=== PATIENT | female | born 1995 | race American Indian/Alaskan Native ===

== ENCOUNTER 2022-03-18 20:13 | Inpatient (IN) | payer OTHER ==
[2022-03-18] MEDS ORDERED: LACTATED RINGERS 0 ML ONE (21:16)
[2022-03-19] MEDS ORDERED: miSOPROStol 200 MCG TAB PR PRN (02:14)
[2022-03-19] MEDS ORDERED: ePHEDrine SULFATE 50 MG/1 ML INJ IV PRN (02:14)
[2022-03-19] MEDS ORDERED: LOPERAMIDE 2 MG CAP PO PRN (02:14)
[2022-03-19] MEDS ORDERED: LIDOCAINE (2%) 20 MG/1 ML VIAL 20 ML MDV INFILTRATI ONE (02:14)
[2022-03-19] MEDS ORDERED: METHYLERGONOVINE MALEATE 0.2 MG/ML VIAL IM PRN (02:14)
[2022-03-19] MEDS ORDERED: CARBOPROST TROMETHAMINE 250 MCG/1 ML INJ IM PRN (02:14)
[2022-03-19] MEDS ORDERED: MINERAL OIL 30 ML ORAL LIQD PO PRN (02:14)
[2022-03-19] MEDS ORDERED: OXYTOCIN 10 UNIT/1 ML INJ IM PRN (02:14)
[2022-03-19] MEDS ORDERED: TERBUTALINE 1 MG/1 ML INJ SUB-Q PRN (02:14)
[2022-03-19] MEDS ORDERED: LACTATED RINGERS 1,000 ML IV SCH (02:15)
[2022-03-19] MEDS ORDERED: ACETAMINOPHEN 325 MG TAB PO PRN (02:47)
[2022-03-19] MEDS ORDERED: BUTORPHANOL 2 MG/1 ML INJ IV PRN ×2 (02:47)
[2022-03-19] MEDS ORDERED: OXYTOCIN DRIP 30 UNITS/500 ML BAG IV SCH (03:00)
[2022-03-19 03:28] LABS: Hematocrit 35.9 % (30.3-42.9); Hemoglobin 11.6 gm/dl (10.1-14.3); Mean Corpuscular HGB Conc 32 % (30-34); Mean Corpuscular Volume 79 fl (79-97); Platelet Count 230 K/mm3 (140-440); Red Blood Count 4.52 M/mm3 (3.65-5.03); Red Cell Distribution Width 16.7 % (13.2-15.2)
[2022-03-19] MEDS ORDERED: DINOPROSTONE 10 MG VAG SUPP VG ONE (03:45)
--- NOTE | 2022-03-19 08:27 | History and Physical Report ---
History of Present Illness Date of examination: 03/19/22 Date of admission: 03/18/22 20:13 Chief complaint: Induction of labor History of present illness: 26-year-old -0-0-1 at 39+6 weeks admitted for induction of labor. The patient is a late entry to care at 27 weeks. She had a lapse in care from 23 to 35 weeks in her . She has a history of preeclampsia with a previous . The patient is GBS negative Past History Past Medical History: no pertinent history Past Surgical History: no surgical history - Obstetrical History Expected Date of Delivery: 03/20/22 Actual Gestation: 39 Week(s) 6 Day(s) : 2 Para: 1 Hx # Term Pregnancies: 1 Number of Pregnancies: 0 Spontaneous Abortions: 0 Induced : 0 Number of Living Children: 1 Medications and Allergies Allergies Allergy/AdvReac Type Severity Reaction Status Date / Time No Known Allergies Allergy Unverified 03/19/22 01:21 Active Meds: Active Medications Acetaminophen (Acetaminophen 325 Mg Tab) 650 mg PO Q4H PRN PRN Reason: Pain, Mild (1-3) Butorphanol Tartrate (Butorphanol 2 Mg/1 Ml Inj) 2 mg IV Q2H PRN PRN Reason: Pain , Severe (7-10) Butorphanol Tartrate (Butorphanol 2 Mg/1 Ml Inj) 1 mg IV Q2H PRN PRN Reason: Pain, Moderate(4-6) LABOR PAIN Carboprost Tromethamine (Carboprost Tromethamine 250 Mcg/1 Ml Inj) 250 mcg IM ONCE PRN PRN Reason: Uterine Bleeding Ephedrine Sulfate (Ephedrine Sulfate 50 Mg/1 Ml Inj) 10 mg IV Q2M PRN PRN Reason: Hypotension Fentanyl (Fentanyl 100 Mcg/2 Ml Inj) 100 mcg IV Q2H PRN PRN Reason: Pain,Severe (7-10) LABOR PAIN Lactated Ringer's (Lactated Ringers) 1,000 mls @ 125 mls/hr IV DIRECT EDDIE Oxytocin/Sodium Chloride (Pitocin/Ns 30 Unit/500ml) 30 units in 500 mls @ 40 mls/hr IV TITR EDDIE; Protocol Stop: 03/20/22 23:59 Loperamide HCl (Loperamide 2 Mg Cap) 2 mg PO ONCE PRN PRN Reason: give with Hemabate Methylergonovine Maleate (Methylergonovine Maleate 0.2 Mg/Ml Vial) 0.2 mg IM ONCE PRN PRN Reason: Uterine Bleeding Mineral Oil (Mineral Oil 30 Ml Oral Liqd) 30 ml PO QHS PRN PRN Reason: Constipation Misoprostol (Misoprostol 200 Mcg Tab) 800 mcg NH ONCE PRN PRN Reason: Uterine Bleeding Oxytocin (Oxytocin 10 Unit/1 Ml Inj) 10 unit IM ONCE PRN PRN Reason: Uterine Bleeding Terbutaline Sulfate (Terbutaline 1 Mg/1 Ml Inj) 0.25 mg SUB-Q ONCE PRN PRN Reason: Hyperstimulation/Hypertonicity Review of Systems All systems: negative Genitourinary: no leakage of fluid, no contractions - Vital Signs Vital signs: Vital Signs Pulse Pulse Ox 105 H 97 03/18/22 22:03 03/18/22 22:03 Temp Pulse Resp BP Pulse Ox 98.1 F 116 H 119/70 99 03/19/22 08:16 03/19/22 08:20 03/19/22 07:56 03/19/22 08:20 - Physical Exam Breasts: Positive: deferred Cardiovascular: Regular rate Lungs: Positive: Clear to auscultation Results Result Diagrams: 03/19/22 02:45 Abnormal lab results 03/19/22 Range/Units 02:45 MCH 26 L (28-32) pg RDW 16.7 H (13.2-15.2) % All other labs normal. Assessment and Plan - Patient Problems (1) Intrauterine growth restriction affecting care of mother Current Visit: Yes Status: Acute Plan to address problem: Admit for induction of labor Cervidil placed for cervical ripening (2) Insufficient care Current Visit: Yes Status: Acute
[2022-03-19] MEDS: miSOPROStol 25 MCG TAB VG PRN (21:13)
[2022-03-20] MEDS: miSOPROStol 25 MCG TAB VG PRN (02:01)
[2022-03-20] MEDS: fentaNYL 100 MCG/2 ML INJ IV PRN ×2 (02:52→07:15)
--- NOTE | 2022-03-20 10:02 | Procedure Note ---
OB Delivery Note - Delivery Date of Delivery: 03/20/22 [employer]ension [employer] Steering Mechanic: SHELDON LEMUS (JACKIE Joel) Estimated blood loss: other (450) - Vaginal Delivery presentation: vertex Delivery position: OA (ROSELYN) Intrapartum events: mult.variable deceleratio Delivery induction: misoprostol Delivery monitor: external FHT, external uterine Route of delivery: Delivery placenta: spontaneous Delivery cord: nuchal cord (x1) Episiotomy: none Delivery laceration: other (vaginal abrasion, bilateral periurethral hemostatic) Anesthesia: intravenous Delivery comments: called by nursing staff to attend delivery, patient complete and pushing spontaneously. Baby boy birthed over intact perineum. dried and stimulated, 3 vessel cord clamped and cut. placenta delivered intact and complete. no lacerations to repair. All counts correct. mother and infant LDR stable. - A Gender: Male (6#4oz)
[2022-03-20] MEDS: IBUPROFEN 800 MG TAB PO SCH ×2 (12:44→18:13)
[2022-03-20] MEDS ORDERED: ACETAMINOPHEN 325 MG TAB PO PRN (13:00)
[2022-03-20] MEDS ORDERED: WITCH HAZEL/ GLYCERIN PAD TP PRN (13:00)
[2022-03-20] MEDS ORDERED: ONDANSETRON 4 MG/2 ML INJ IV PRN (13:00)
[2022-03-20] MEDS ORDERED: PROMETHAZINE 25 MG TAB PO PRN (13:00)
[2022-03-20] MEDS ORDERED: LANOLIN/ZINC/DIMETHICONE (LANSINOH) 7 GM TP PRN (13:00)
[2022-03-20] MEDS ORDERED: diphenhydrAMINE 25 MG CAP PO PRN (13:00)
[2022-03-20] MEDS ORDERED: BENZOCAINE/MENTHOL 20/0.5% TOP SPRAY 56 GM TP PRN (13:00)
[2022-03-20] MEDS ORDERED: MAGNESIUM HYDROXIDE (MOM) ORAL LIQD UDC PO PRN (22:00)
[2022-03-21 00:03] LABS: Hemoglobin 9.4 gm/dl (10.1-14.3)
[2022-03-21] MEDS: IBUPROFEN 800 MG TAB PO SCH ×3 (01:55→16:09)
[2022-03-21 02:43] VITALS: BP 100/60
[2022-03-21] MEDS ORDERED: PRENATAL VIT27-FE FUMARATE-FOLIC ACID VIT TAB PO SCH (10:00)
[2022-03-21] MEDS ORDERED: TETANUS,DIPH,PERTUSS(ACELL) VACCINE 0.5 ML SYRINGE IM ONE (10:00)
--- NOTE | 2022-03-21 14:28 | Progress Note ---
Assessment and Plan A: PPD#1 s/p at term Asymptomatic anemia P: Routine care Discharge today Subjective - Subjective Date of service: 03/21/22 Principal diagnosis: s/p at term Interval history: Pt without complaints. She desires to go home today if possible. Patient reports: appetite normal, voiding normally, pain well controlled, ambulating normally Nelson: doing well Objective - Vital Signs Latest vital signs: Vital Signs Temp Pulse Resp BP Pulse Ox Pulse Ox 03/21/22 08:37 98 03/21/22 00:49 97.3 F L 78 18 100/60 97 03/20/22 21:19 97.9 F 85 18 118/69 97 03/20/22 20:11 97 03/20/22 15:41 98.8 F 92 H 16 115/72 97 Intake and Output 03/20/22 03/21/22 03/21/22 22:59 06:59 14:59 Intake Total 440 240 240 Output Total 1350 Balance -910 240 240 Intake: Oral 200 Intake, Free Water 240 240 240 Output: Urine 1350 Void 1350 Other: Total, Intake Amount 200 Total, Output Amount 550 # Voids Void 2 1 - Exam Breasts: Present: deferred Abdomen: Present: soft Uterus: Present: fundal height at umbilicus Extremities: Present: normal - Labs Labs: Abnormal lab results 03/20/22 Range/Units 23:48 Hgb 9.4 L (10.1-14.3) gm/dl Hct 28.0 L D (30.3-42.9) %
--- NOTE | 2022-03-21 14:32 | Discharge Summary ---
Providers - Providers Date of Admission: 03/18/22 20:13 Date of discharge: 03/21/22 Attending physician: EMMANUEL MUSTAFA 03/20/22 12:02 Consult to Heel Seat Sander [CONS] Routine Reason For Exam: assistance with , SNS Primary care physician: EMMANUEL MUSTAFA Hospitalization Reason for admission: induction of labor Delivery: Procedure details: Please see delivery note Episiotomy: none Laceration: none Other procedures: none complications: none Discharge diagnosis: IUP at term delivered [place] baby: male Hospital course: Patient was admitted for induction of labor secondary to intrauterine growth restriction. She underwent a spontaneous vaginal delivery which he tolerated well. Her course was uncomplicated and she met discharge criteria on day #1. She will follow-up in the office in 4 weeks. Condition at discharge: Stable Disposition: 01 HOME / SELF CARE / HOMELESS - Discharge Diagnoses (1) Anemia Status: Acute Qualifiers: Anemia type: unspecified type Qualified Code(s): D64.9 - Anemia, unspecified (2) Insufficient care Status: Acute (3) Intrauterine growth restriction affecting care of mother Status: Acute (4) (normal spontaneous vaginal delivery) Status: Acute Plan - Discharge Medications Prescriptions: Ferrous Sulfate [Feosol 325 MG tab] 325 mg PO BID #60 tablet Ibuprofen [Motrin] 600 mg PO Q6H PRN #30 tablet PRN Reason: Pain - Provider Discharge Summary Activity: routine, no sex for 6 weeks, no heavy lifting 4 weeks, no strenuous exercise Diet: routine Instructions: routine Additional instructions: [] Smoking cessation referral if applicable(refer to patient education folder for contact #) [] Refer to [facility]'s [facility] Booklet Call your doctor immediately for: * Fever > 100.5 * Heavy vaginal bleeding ( >1 pad per hour) * Severe persistent headache * Shortness of breath * Reddened, hot, painful area to leg or breast * Drainage or odor from incision. * Keep incision clean and dry at all times and follow doctor's instructions regarding bathing/showering - Follow up plan Follow up: BOLA VIERA NP [Advanced Practice Nurse] - 04/17/22 (Please call to schedule appt )
== END 2022-03-21 16:55 | disposition home or self-care (01) | DRG 807 ==
LOC: LD 20:13 → OB 03-20 12:01
PROVIDERS: ADMIT Obstetrics & Gynecology; ATTEND Obstetrics & Gynecology
PROC: 10E0XZZ Delivery of Products of Conception, External Approach (ICD-10-PCS; principal; 2022-03-20)
PROC: 3E0P7VZ Introduction of Hormone into Female Reproductive, Via Natural or Artificial Opening (ICD-10-PCS; 2022-03-20)
PROC: 3E0234Z Introduction of Serum, Toxoid and Vaccine into Muscle, Percutaneous Approach (ICD-10-PCS; 2022-03-21)
DX: O36.5930 Maternal care for other known or suspected poor fetal growth, third trimester, not applicable or unspecified (principal); Z37.0 Single live birth; Z20.822 Contact with and (suspected) exposure to COVID-19; Z3A.39 39 weeks gestation of pregnancy; O69.81X0 Labor and delivery complicated by cord around neck, without compression, not applicable or unspecified; O76 Abnormality in fetal heart rate and rhythm complicating labor and delivery; O71.82 Other specified trauma to perineum and vulva; O90.81 Anemia of the puerperium; Z23 Encounter for immunization
CPT/HCPCS: 36415; 85014; 85018; 85027; 86592; 86850; 86900; 86901; 88307; G0378; J0595; J3010; U0003